=== PATIENT | male | born 1985 | race Hispanic/Latino ===

== ENCOUNTER 2019-06-11 12:38 | Day surgery (SDC) | payer OTHER ==
--- OUTSIDE RECORDS SUMMARY | 2019-06-11 12:53 | XMS REPORT | Continuity of Care Document ---
:1985 Author Organization [facility] Address [address] [place] [address] Phone Unavailable Care Team Providers Name Role Phone Ricky PORTILLO DO Primary Care Physician Insurance Providers Guarantor Delores Gu Address [address] [place] [address] Email [email or web address] Payer [employer] Policy Number [id number] Subscriber's Name Delores Gu Relationship Self / Same As Patient Group Number [id number] Group Name SYLVESTER/JAYLEEN Advance Directives Directive Response Recorded Date/Time Advance Directive on File No 06/09/19 1:04am Chief Complaint and Reason for Visit Chief Complaint Abdominal/GI/Nausea/Vomiting Reason for Visit [id number] Small bowel obstruction [id number] Problems Medical Problem Onset Date Status Constipation by delayed colonic transit Unknown Acute Postoperative anemia Unknown Acute Small bowel obstruction Unknown Acute Past Problems Medical Problem Onset Date Status Abdominal pain Unknown Acute Muscle strain Unknown Acute Medications Current Home Medications Medication Dose Units Route Directions Days Qty Instructions Start Date Acetamin/Codeine 1 Tab ORAL Every 6 Hours 5 Days 15 Tablet Do not combine 300/30 Mg * As Needed as with other 9 (Tylenol With needed for products that Codeine #3 300/30 Pain contain Mg *) 300/30 Mg Tylenol Tab (acetaminophen ). Cyclobenzaprine 1 Tab ORAL Every 6 Hours 5 Days 15 Tablet Hcl (Flexeril *) As Needed as 9 10 Mg Tab needed for Muscle Spasms Ibuprofen (Motrin 1 Tab ORAL Every 6 Hours 5 Days 20 Tablet *) 600 Mg Tab As Needed as 9 needed for Pain Social History Smoking Status Start Date Stop Date Never smoker Hospital Discharge Instructions No hospital discharge instruction information available. Plan of Care Discharge Date 06/09/19 7:35am Instructions/Education Provided Anemia Constipation, Adult Small Bowel Series, Bzfx-rz-Iiqu Forms Provided Portal Welcome Letter Prescriptions See Medication Section Referrals Ricky PORTILLO DO Address: [address] [place], [place] [address] Additional Instructions/Education Ferrous sulfate Drink plenty of fluids Take Dulcolax twice a day until bowels star moving Avoid pain medication Follow up with Doctor Chele tomorrow Return to ER if getting worse Functional Status No functional status information available. Allergies, Adverse Reactions, Alerts Allergen Type Severity Reaction Status Last Updated No Known Allergies Active 05/12/04 Immunizations No immunization information available. Vital Signs Acute Vital Signs Vital Response Date/Time Blood Pressure 156/92 mm Hg 06/09/2019 8:01am Pulse Pulse Rate (adult) 102 beats per minute (60 - 100) 06/09/2019 8:01am Respiratory Rate 16 breaths per minute (10 - 24) 06/09/2019 8:01am Temperature Source Oral 06/09/2019 8:01am Height 5 ft 10 in 06/09/2019 1:04am Weight 240 lb 06/09/2019 1:04am Body Mass Index 34.4 kg/m^2 06/09/2019 1:04am Results Laboratory Results Test Name Result Units Flags Reference Collection Result Comments Date/Time Date/Time White Blood Count 11.8 K/ul 4.0-12.3 06/09/2019 06/09/2019 1:25am 1:50am Red Blood Count 2.46 M/ul L 3.80-5.80 06/09/2019 06/09/2019 1:25am 1:50am Hemoglobin 7.0 g/dL L* 11.7-17.2 06/09/2019 06/09/2019 Results have been broadcasted to patient's location and 1:25am 1:50am called to ([facility] By BISHOP DANG 06/09/19 @0147 Results read back for confirmation. Hematocrit 20.8 % #L* 35.0-51.0 06/09/2019 06/09/2019 Results have been broadcasted to patient's location and 1:25am 1:50am called to ([facility] By BISHOP DANG 06/09/19 @0147 Results read back for confirmation. Mean Corpuscular 84.6 fl 83-100 06/09/2019 06/09/2019 Volume 1:25am 1:50am Mean Corpuscular 28.5 pg 26.8-33.4 06/09/2019 06/09/2019 Hemoglobin 1:25am 1:50am Mean Corpuscular 33.7 g/dL 30-35 06/09/2019 06/09/2019 Hemoglobin Concent 1:25am 1:50am Red Cell 12.7 % 12.0-14.0 06/09/2019 06/09/2019 Distribution Width 1:25am 1:50am Platelet Count 316 K/uL 175-450 06/09/2019 06/09/2019 1:25am 1:50am Mean Platelet 10.5 fL 9.4-12.6 06/09/2019 06/09/2019 Volume 1:25am 1:50am Neutrophils (%) 64.6 % 44.7-82.4 06/09/2019 06/09/2019 (Auto) 1:25am 1:50am Immature 0.6 % H 0.0-0.4 06/09/2019 06/09/2019 Granulocyte % 1:25am 1:50am (Auto) Lymphocytes (%) 19.2 % 10.0-50.0 06/09/2019 06/09/2019 (Auto) 1:25am 1:50am Monocytes (%) 14.3 % H 3.9-13.4 06/09/2019 06/09/2019 (Auto) 1:25am 1:50am Eosinophils (%) 0.9 % 0.0-6.4 06/09/2019 06/09/2019 (Auto) 1:25am 1:50am Basophils (%) 0.4 % 0.2-1.2 06/09/2019 06/09/2019 (Auto) 1:25am 1:50am Neutrophils # 7.63 K/uL H 1.78-5.38 06/09/2019 06/09/2019 (Auto) 1:25am 1:50am Absolute Immature 0.1 K/uL H 0.0-0.03 06/09/2019 06/09/2019 Granulocyte (auto 1:25am 1:50am Lymphocytes # 2.3 K/uL 1.32-3.57 06/09/2019 06/09/2019 (Auto) 1:25am 1:50am Monocytes # (Auto) 1.69 K/uL H 0.30-0.82 06/09/2019 06/09/2019 1:25am 1:50am Eosinophils # 0.11 K/uL 0.04-0.54 06/09/2019 06/09/2019 (Auto) 1:25am 1:50am Basophils # (Auto) 0.05 K/uL 0.01-0.08 06/09/2019 06/09/2019 1:25am 1:50am Nucleated Red 0 /100 0-0.2 06/09/2019 06/09/2019 Blood Cells % WBC 1:25am 1:50am Nucleated Red 0 K/uL 0 06/09/2019 06/09/2019 Blood Cells # 1:25am 1:50am Urine Color YELLOW 06/09/2019 06/09/2019 5:39am 5:52am Urine Appearance CLEAR CLEAR 06/09/2019 06/09/2019 5:39am 5:52am Urine Glucose (UA) NEGATIVE NEGATIVE 06/09/2019 06/09/2019 5:39am 5:52am Urine Bilirubin NEGATIVE NEGATIVE 06/09/2019 06/09/2019 5:39am 5:52am Urine Ketones TRACE NEGATIVE 06/09/2019 06/09/2019 5:39am 5:52am Urine Specific 1.047 H 1.003-1.030 06/09/2019 06/09/2019 [place] 5:39am 5:52am Urine Blood NEGATIVE NEGATIVE 06/09/2019 06/09/2019 5:39am 5:52am Urine pH 6.000 5-9 06/09/2019 06/09/2019 5:39am 5:52am Urine Protein TRACE NEGATIVE 06/09/2019 06/09/2019 5:39am 5:52am Urine Urobilinogen NORMAL mg/dL 0.2-1.0 06/09/2019 06/09/2019 5:39am 5:52am Urine Nitrate NEGATIVE NEGATIVE 06/09/2019 06/09/2019 5:39am 5:52am Urine Leukocyte NEGATIVE NEGATIVE 06/09/2019 06/09/2019 [place] 5:39am 5:52am Urine RBC <1 /hpf 0-5 06/09/2019 06/09/2019 5:39am 5:55am Urine WBC 1-5 /hpf 0-5 06/09/2019 06/09/2019 5:39am 5:55am Urine Epithelial <1 /hpf 0-5 06/09/2019 06/09/2019 Cells 5:39am 5:55am Urine Bacteria None /hpf None Detect 06/09/2019 06/09/2019 Detected 5:39am 5:55am Urine Casts None /lpf None Detect 06/09/2019 06/09/2019 Detected 5:39am 5:55am Urine Culture NO 06/09/2019 06/09/2019 Reflexed 5:39am 5:55am Random Glucose 137 mg/dL H 74-106 06/09/2019 06/09/2019 1:25am 2:16am Blood Urea 10 mg/dL 6-06/09/2019 06/09/2019 Nitrogen 1:25am 2:16am Serum Osmolality 266 L 280-300 06/09/2019 06/09/2019 1:25am 2:16am Creatinine 0.8 mg/dL 0.70-1.20 06/09/2019 06/09/2019 1:25am 2:16am Glomerular > 60.00 06/09/2019 06/09/2019 GFR RESULTS ARE REPORTED IN mL/min/1.73m2. Filtration Rate 1:25am 2:16am Calc Normal GFR: >60mL/min Moderately decreased GFR: 30-59 mL/min Severely decreased GFR: 15-29 mL/min Kidney Failure (or Dialysis): <15 mL/min The calculated eGFR is not valid for patients younger than 18 years or older than 75 years. BUN/Creatinine 12.5 12-20 06/09/2019 06/09/2019 Ratio 1:25am 2:16am Sodium Level 132 mmol/L L 135-145 06/09/2019 06/09/2019 1:25am 2:16am Potassium Level 3.8 mmol/L 3.5-5.2 06/09/2019 06/09/2019 1:25am 2:16am Chloride Level 93 mmol/L L 98-108 06/09/2019 06/09/2019 1:25am 2:16am Carbon Dioxide 27 mmol/L 21-32 06/09/2019 06/09/2019 Level 1:25am 2:16am Anion Gap 15.8 mEq/L 12-20 06/09/2019 06/09/2019 1:25am 2:16am Calcium Level 8.7 mg/dL 8.6-10.0 06/09/2019 06/09/2019 1:25am 2:16am Total Protein 6.6 g/dL 6.6-8.7 06/09/2019 06/09/2019 1:25am 2:16am Albumin 3.6 g/dL 3.5-5.2 06/09/2019 06/09/2019 1:25am 2:16am Globulin 3.0 gm/dL 06/09/2019 06/09/2019 1:25am 2:16am Albumin/Globulin 1.2 >1.0 06/09/2019 06/09/2019 Ratio 1:25am 2:16am Total Bilirubin 0.7 mg/dL 0.0-1.2 06/09/2019 06/09/2019 1:25am 2:16am Aspartate Amino 15 U/L 15-40 06/09/2019 06/09/2019 Transf (AST/SGOT) 1:25am 2:16am Alanine 9 U/L 0-41 06/09/2019 06/09/2019 Aminotransferase 1:25am 2:16am (ALT/SGPT) Lipase 14 U/L 13-60 06/09/2019 06/09/2019 1:25am 2:16am Total Alkaline 73 U/L 40-130 06/09/2019 06/09/2019 Phosphatase 1:25am 2:16am Procedures Procedure Status Date Provider(s) X-ray of abdomen, single view Completed 06/09/19 JONATHAN DONG MD Computed tomography of abdomen and pelvis with Completed 06/09/19 JONATHAN DONG MD contrast Encounters Encounter Location Arrival/Admit Date Discharge/Depart Date Attending Provider Registered [place] 06/09/19 1:01am [facility] Castillo [facility] Recent Diagnosis
--- OUTSIDE RECORDS SUMMARY | 2019-06-11 12:53 | XMS REPORT | Continuity of Care Document ---
:1985 Author Organization [facility] Address [address] [place] [address] Phone Unavailable Care Team Providers Name Role Phone Ricky PORTILLO DO Primary Care Physician Insurance Providers Guarantor Delores Gu Address [address] [place] [address] Email [email or web address] Payer [employer] Policy Number [id number] Subscriber's Name Delores Gu Relationship Self / Same As Patient Group Number [id number] Group Name SYLVESTER/JAYLEEN Advance Directives Directive Response Recorded Date/Time Patient/Family Given Education Material R/T Y - 03/24/19...[place] 03/24/19 2: 51pm Directives? Chief Complaint and Reason for Visit Chief Complaint Abdominal/GI/Nausea/Vomiting Reason for Visit Muscle strain Abdominal pain Problems Active ProblemsNo active problem information available. Past Problems Medical Problem Onset Date Status [...] information available. Plan of Care Discharge Date 03/24/19 4:50pm Instructions/Education Provided Muscle Strain, Nyxk-ff-Frxz Abdominal Pain, Adult, Dngn-tf-Vsmq Forms Provided Portal Welcome Letter Prescriptions See Medication Section Referrals Ricky PORTILLO DO Address: [address] [place] [id number] Additional Instructions/Education Recommend that you take the Flexeril 10 mg 3 times daily as needed for muscle spasm, also take the Tylenol #3 as needed for pain, and take the Motrin 600 mg as needed for inflammatory pain. Follow up with your primary doctor in 2 days for re check of your condition, or otherwise return to the ED if your condition worsens. Functional Status No functional status information available. Allergies, Adverse Reactions, Alerts Allergen Type Severity Reaction Status Last Updated No Known Allergies Active 05/12/04 Immunizations No immunization information available. Vital Signs Acute Vital Signs Vital Response Date/Time Blood Pressure 116/65 mm Hg 03/24/2019 4:58pm Pulse Pulse Rate (adult) 53 beats per minute (60 - 100) 03/24/2019 4:58pm Respiratory Rate 14 breaths per minute (10 - 24) 03/24/2019 4:58pm Temperature Source Oral 03/24/2019 4:58pm Height 5 ft 10 in 03/24/2019 2:20pm Weight 235 lb 03/24/2019 2:20pm Body Mass Index 33.7 kg/m^2 03/24/2019 2:20pm Results Laboratory Results Test Name Result Units Flags Reference Collection Result Comments Date/Time Date/Time White Blood Count 10.0 K/ul 4.0-12.3 03/24/2019 03/24/2019 2:22pm 2:38pm Red Blood Count 5.45 M/ul 3.80-5.80 03/24/2019 03/24/2019 2:22pm 2:38pm Hemoglobin 15.1 g/dl 11.7-17.2 03/24/2019 03/24/2019 2:22pm 2:38pm Hematocrit 46.9 % 35.0-51.0 03/24/2019 03/24/2019 2:22pm 2:38pm Mean Corpuscular 86.0 fl 78-96 03/24/2019 03/24/2019 Volume 2:22pm 2:38pm Mean Corpuscular 27.6 pg 26.8-33.4 03/24/2019 03/24/2019 Hemoglobin 2:22pm 2:38pm Mean Corpuscular 32.2 g/dl L 32.3-36.7 03/24/2019 03/24/2019 Hemoglobin 2:22pm 2:38pm Concent Red Cell 12.0 % 11.6-15.4 03/24/2019 03/24/2019 Distribution 2:22pm 2:38pm Width Platelet Count 272 K/ul 115-328 03/24/2019 03/24/2019 2:22pm 2:38pm Mean Platelet 8.3 fl L 8.4-11.8 03/24/2019 03/24/2019 Volume 2:22pm 2:38pm Neutrophils (%) 66.8 % 44.7-82.4 03/24/2019 03/24/2019 (Auto) 2:22pm 2:38pm Lymphocytes (%) 24.6 % 10.0-50.0 03/24/2019 03/24/2019 (Auto) 2:22pm 2:38pm Monocytes (%) 6.7 % 3.9-13.4 03/24/2019 03/24/2019 (Auto) 2:22pm 2:38pm Eosinophils (%) 0.8 % 0.0-6.4 03/24/2019 03/24/2019 (Auto) 2:22pm 2:38pm Basophils (%) 1.1 % H 0.0-0.72 03/24/2019 03/24/2019 (Auto) 2:22pm 2:38pm Urine Color YELLOW 03/24/2019 03/24/2019 2:22pm 2:39pm Urine Appearance CLEAR CLEAR 03/24/2019 03/24/2019 2:22pm 2:39pm Urine Glucose NEGATIVE NEGATIVE 03/24/2019 03/24/2019 2:22pm 2:39pm Urine Bilirubin NEGATIVE NEGATIVE 03/24/2019 03/24/2019 2:22pm 2:39pm Urine Ketones NEGATIVE NEGATIVE 03/24/2019 03/24/2019 2:22pm 2:39pm Urine Specific 1.030 1.003-1.03 03/24/2019 03/24/2019 [place] 0 2:22pm 2:39pm Urine Blood NEGATIVE NEGATIVE 03/24/2019 03/24/2019 2:22pm 2:39pm Urine pH 6.500 5-9 03/24/2019 03/24/2019 2:22pm 2:39pm Urine Protein NEGATIVE NEGATIVE 03/24/2019 03/24/2019 2:22pm 2:39pm Urine 2.0-3.0 mg/dL H 0.2-1.0 03/24/2019 03/24/2019 Urobilinogen 2:22pm 2:39pm Urine Nitrate NEGATIVE NEGATIVE 03/24/2019 03/24/2019 2:22pm 2:39pm Urine Leukocyte NEGATIVE NEGATIVE 03/24/2019 03/24/2019 Esterase 2:22pm 2:39pm Urine RBC <1 /hpf 0-5 03/24/2019 03/24/2019 2:22pm 2:41pm Urine WBC <1 /hpf 0-5 03/24/2019 03/24/2019 2:22pm 2:41pm Urine Epithelial <1 /hpf 0-5 03/24/2019 03/24/2019 Cells 2:22pm 2:41pm Urine Bacteria None /hpf None 03/24/2019 03/24/2019 Detected Detect 2:22pm 2:41pm Urine Casts None /lpf None 03/24/2019 03/24/2019 Detected Detect 2:22pm 2:41pm Urine Culture NO 03/24/2019 03/24/2019 Reflexed 2:22pm 2:41pm Random Glucose 99 mg/dL 74-106 03/24/2019 03/24/2019 2:22pm 2:52pm Blood Urea 15 mg/dL 6-20 03/24/2019 03/24/2019 Nitrogen 2:22pm 2:52pm Serum Osmolality 278 L 280-300 03/24/2019 03/24/2019 2:22pm 2:52pm Creatinine 0.9 mg/dL 0.70-1.20 03/24/2019 03/24/2019 2:22pm 2:52pm Glomerular > 60.00 03/24/2019 03/24/2019 GFR RESULTS ARE REPORTED IN mL/min/1.73m2. Filtration Rate 2:22pm 2:52pm Calc Normal GFR: >60mL/min Moderately decreased GFR: 30-59 mL/min Severely decreased GFR: 15-29 mL/min Kidney Failure (or Dialysis): <15 mL/min The calculated eGFR is not valid for patients younger than 18 years or older than 75 years. BUN/Creatinine 16.7 12-03/24/2019 03/24/2019 Ratio 2:22pm 2:52pm Sodium Level 139 mmol/L 135-145 03/24/2019 03/24/2019 2:22pm 2:52pm Potassium Level 4.2 mmol/L 3.5-5.2 03/24/2019 03/24/2019 2:22pm 2:52pm Chloride Level 101 mmol/L 98-108 03/24/2019 03/24/2019 2:22pm 2:52pm Carbon Dioxide 27 mmol/L 21-32 03/24/2019 03/24/2019 Level 2:22pm 2:52pm Anion Gap 15.2 mEq/L 09-2003/24/2019 03/24/2019 2:22pm 2:52pm Calcium Level 9.2 mg/dL 8.6-10.0 03/24/2019 03/24/2019 2:22pm 2:52pm Total Protein 7.2 g/dL 6.6-8.7 03/24/2019 03/24/2019 2:22pm 2:52pm Albumin 4.4 g/dL 3.5-5.2 03/24/2019 03/24/2019 2:22pm 2:52pm Globulin 2.8 gm/dL 03/24/2019 03/24/2019 2:22pm 2:52pm Albumin/Globulin 1.6 >1.0 03/24/2019 03/24/2019 Ratio 2:22pm 2:52pm Total Bilirubin 0.4 mg/dL 0.0-1.2 03/24/2019 03/24/2019 2:22pm 2:52pm Aspartate Amino 20 U/L 15-40 03/24/2019 03/24/2019 Transf (AST/SGOT) 2:22pm 2:52pm Alanine 15 U/L 0-41 03/24/2019 03/24/2019 Aminotransferase 2:22pm 2:52pm (ALT/SGPT) Amylase Level 56 U/L 28-100 03/24/2019 03/24/2019 2:22pm 2:52pm Lipase 41 U/L 13-60 03/24/2019 03/24/2019 2:22pm 2:52pm Total Alkaline 78 U/L 40-130 03/24/2019 03/24/2019 Phosphatase 2:22pm 2:52pm Urine NEGATIVE NG/ML NEGATIVE 03/24/2019 03/24/2019 Amphetamines 2:22pm 2:54pm Screen Urine NEGATIVE NG/ML NEGATIVE 03/24/2019 03/24/2019 Barbiturates, 2:22pm 2:54pm Quantitative Urine NEGATIVE NG/ML NEGATIVE 03/24/2019 03/24/2019 Benzodiazepines 2:22pm 2:54pm Screen Urine NEGATIVE NG/ML NEGATIVE 03/24/2019 03/24/2019 Cannabinoids 2:22pm 2:54pm Urine Cocaine NEGATIVE NG/ML NEGATIVE 03/24/2019 03/24/2019 Metabolite 2:22pm 2:54pm Urine Opiates NEGATIVE NG/ML NEGATIVE 03/24/2019 03/24/2019 Screen 2:22pm 2:54pm Urine NEGATIVE NG/ML NEGATIVE 03/24/2019 03/24/2019 Phencyclidine 2:22pm 2:54pm (PCP) Level Methadone Level NEGATIVE NG/ML NEGATIVE 03/24/2019 03/24/2019 2:22pm 2:54pm Propoxyphene NEGATIVE NG/ML NEGATIVE 03/24/2019 03/24/2019 Level 2:22pm 2:54pm Oxycodone Level NEGATIVE NG/ML NEGATIVE 03/24/2019 03/24/2019 2:22pm 2:54pm Urine Drug Screen . 03/24/2019 03/24/2019 DRUGS OF ABUSE CUT-OFF VALUES Note 2:22pm 2:36pm AMPHETAMINES (AMPH) NEGATIVE (CUT OFF CONC: 1000 NG/ML) BARBITUATES (QUIQUE) NEGATIVE (CUT OFF CONC: 200 NG/ML) BENZODIAZEPINES (SONIYA) NEGATIVE (CUT OFF CONC: 300 NG/ML) CANNABINOIDS (THC) NEGATIVE (CUT OFF CONC: 50 NG/ML) COCAINE (AVA) NEGATIVE (CUT OFF CONC: 300 NG/ML) OPIATES (OPI) NEGATIVE (CUT OFF CONC: 300 NG/ML) PHENCYCLIDINE (PCP) NEGATIVE (CUT OFF CONC: 25 NG/ML)METHADONE (MTD) NEGATIVE (CUT OFF CONC: 300 NG/ML) PROPOXYPHENE (PPX) NEGATIVE (CUT OFF CONC: 300 NG/ML) OXYCODONE (OXY) NEGATIVE (CUT OFF CONC: 100 NG/ML) ANY POSITIVE RESULT IS UNCONFIRMED. CONFIRMATION AND QUANTITATION AVAILABLE UPON MD REQUEST. Procedures Procedure Status Date Provider(s) Computed tomography of abdomen and pelvis with Completed 03/24/19 SADIE FLYNN MD contrast Encounters Encounter Location Arrival/Admit Date Discharge/Depart Date Attending Provider Departed [place] 03/24/19 2:15pm 03/24/19 4:50pm SADIE FLYNN [facility] Recent Diagnosis
[2019-06-11] MEDS ORDERED: ROCURONIUM 50 MG/5 ML VIAL IV ONE (12:55)
[2019-06-11] MEDS ORDERED: LIDOCAINE 2% MPF 5 ML VIAL ONE (12:55)
[2019-06-11] MEDS ORDERED: FENTANYL CITR 100 MCG/2 ML ONE ×3 (12:55→15:54)
[2019-06-11] MEDS ORDERED: PROPOFOL 200 MG/20 ML VIAL IV ONE (12:55)
[2019-06-11] MEDS ORDERED: Ringers Lactate 1,000 ML IV ONE (12:55)
[2019-06-11] MEDS ORDERED: MIDAZOLAM HCL 2 MG/2 ML INJ ONE (12:55)
[2019-06-11] MEDS ORDERED: PROMETHAZINE 25 MG/ML VIAL ONE (13:05)
[2019-06-11] MEDS ORDERED: HYDROMORPHONE HCL 1 MG/ML INJ ONE (13:07)
[2019-06-11] MEDS ORDERED: NA CHLORIDE 0.9% 1,000 ML ONE ×2 (13:12→14:07)
--- NOTE | 2019-06-11 13:23 | P.HP ---
Certification for Inpatient With expected LOS: <2 Midnights Patient will require the following post-hospital care: None Practitioner: I am a practitioner with admitting privileges, knowledge of patient current condition, hospital course, and medical plan of care. Services: Services provided to patient in accordance with Admission requirements found in Title 42 Section 412.3 of the Code of Federal Regulations Patient History Date of Service: 06/11/19 Reason for admission: abdominal incision hematoma History of Present Illness: S/P abdominal surgery 6 days ,presents with increased pain and swelling at abdominal incision site. Home medications list reviewed: No - Past Medical/Surgical History Has patient received pneumonia vaccine in the past: No Diabetic: No Past Medical History: Reviewed- Non-Contributory -: gastic sleeve , abdomioplasty,gynecomastia surgery - Social History Smoking Status: Never smoker Alcohol use: No CD- Drugs: No Caffeine use: Yes Place of Residence: Home Assessment and Plan - Advance Directives Does patient have a Living Will: No Does patient have a Durable POA for Healthcare: No
[2019-06-11 13:28] LABS: Absolute Lymphocytes (CBC) 1.3 K/uL (0.7-4.9); Basophils % 0.2 % (0-1.3); Hematocrit 20.4 % (39.6-49.0); Lymphocytes % 11.1 % (15.3-44.8); MPV 7.3 fL (7.6-11.3); RBC Red Blood Cell Count 2.44 M/uL (4.33-5.43)
[2019-06-11 13:38] LABS: Protime INR 1.23
[2019-06-11] MEDS ORDERED: CEFAZOLIN/SWI 2gm 2 GM/20 ML SYR ONE (13:40)
[2019-06-11] MEDS ORDERED: ONDANSETRON 4 MG/2 ML VIAL ONE (15:10)
[2019-06-11] MEDS ORDERED: GLYCOPYRROLATE 0.2 MG/ML SYR ONE (15:46)
[2019-06-11] MEDS ORDERED: NEOSTIGMINE 1 MG/ML -10 ML VIAL ONE (15:46)
[2019-06-11] MEDS ORDERED: LABETALOL HCL 100 MG/20 ML ONE (16:22)
[2019-06-11] MEDS: MORPHINE 4 MG/ML SYR ONE ×2 (16:30→16:39)
[2019-06-11 16:36] LABS: Hematocrit 21.8 % (39.6-49.0)
[2019-06-11] MEDS ORDERED: TRAMADOL HCL 50 MG TAB PO PRN (16:59)
[2019-06-11 17:33] VITALS: BMI 35.4
[2019-06-11] MEDS: TRAMADOL HCL 50 MG TAB PO PRN (19:12)
[2019-06-11] MEDS: CYCLOBENZAPRINE 10 MG TAB PO PRN (21:02)
[2019-06-11] MEDS: ACETAMINOPHEN 500 MG TAB PO PRN (21:02)
[2019-06-11] MEDS: CEFAZOLIN/SWI 2gm 2 GM/20 ML SYR IVP SCH (21:03)
[2019-06-12] MEDS: TRAMADOL HCL 50 MG TAB PO PRN ×2 (00:32→09:25)
--- NOTE | 2019-06-12 02:58 | OP ---
Date of Procedure: 06/11/2019 Surgeon: Kunal Avendano MD Smoke Tester: DAVID Lorenz Preoperative Diagnosis: Hematoma, abdominal incision. Postoperative Diagnosis: Hematoma, abdominal incision. Operation Performed: Incision and drainage of hematoma, abdominal incision.( CPT 44425) Anesthesia: General endotracheal anesthesia. Counts: All needle, sponge, and instrument counts were correct at the end of the case. Specimens: No specimens sent. Indications: Patient is a 33-year-old male, who had previous abdominal surgery approximately a week ago and developed increased pain and swelling at the site, clinically appeared to have hematoma, now here for incision and drainage of abdominal incision hematoma. Blood loss acute was minimal. About 200 cc of clot was removed. Description Of Procedure: Patient was seen in the preoperative holding area. The operative plan reviewed. Patient was also scheduled and transfuse 2 units of blood. He was brought to the operating suite, placed in a comfortable supine position on the bed with the head slightly elevated. After induction of general anesthesia, he was also given Ancef 2 g IV piggyback prior to skin incision within 1 hour and BOBBY hose and sequential compression devices were placed on lower extremities and activated prior to skin incision and induction of general anesthesia. After induction of general anesthesia, the abdomen was prepped and draped in sterile fashion with Betadine. A portion of the lateral incision on the right and left side was opened up through the skin, subcutaneous tissues, Jimy's fascia down the abdominal wall. A thin layer of stable dark clot was present over the abdominal wall from the incision up to approximately the level of the umbilicus. This was removed and irrigated copiously with saline. Saline soaked lap pads were placed in the wound and allowed to sit for approximately 10 minutes and then removed. No active bleeding was noted. The wound was then closed over two 10 mm Almas-Delcid drains, each one brought out through the end of each side of the incision and sutured in place with 3-0 nylon. The incision was then closed with a Jimy's fascia layer of running 0 PDS suture and then isaura were used to approximate the skin edges. The wound was then dressed with Xeroform, ABD pads, and Hypafix tape. The drains were placed to close bulb suction. The patient was awakened, extubated and taken to recovery in stable condition. He will be observed overnight and follow his blood counts. GP/MODL Voice ID: [id number] Report ID: [id number] LESLIE
[2019-06-12] MEDS: CEFAZOLIN/SWI 2gm 2 GM/20 ML SYR IVP SCH (05:21)
[2019-06-12 06:07] LABS: Hematocrit 24.2 % (39.6-49.0)
[2019-06-12] MEDS: ACETAMINOPHEN 500 MG TAB PO PRN (06:43)
[2019-06-12 08:26] VITALS: BP 168/92; TEMP 97.9
--- NOTE | 2019-06-12 08:44 | P.PN ---
Subjective Date of Service: 06/12/19 Chief Complaint: abdominal incision hematoma Subjective: Tolerating diet, Ambulating, Doing well Pt. post op day # 1 doing well, VSS,dressing intact and dry. Tolerating regular diet. Appropriate elevation of H/H with transfusion. Plan D/C home. Physical Examination - Vital Signs Temperature: 97.9 F Blood Pressure: 168/92 Pulse: 97 Respirations: 20 Pulse Ox (%): 92 - Studies Laboratory Data (last 24 hrs) 06/12/19 05:36: Hgb 8.4 L, Hct 24.2 L 06/11/19 16:20: Hgb 7.6 L*, Hct 21.8 L 06/11/19 13:11: Sodium 133 L, Potassium 4.0, BUN 27 H, Creatinine 1.02, Glucose 107 H 06/11/19 13:11: PT 14.4 H, INR 1.23, APTT 27.0 06/11/19 13:11: WBC 11.4 H, Hgb 7.4 L*, Hct 20.4 L*, Plt Count 570 H
[2019-06-12] MEDS ORDERED: VITAMIN K (ADULT) 10 MG/ML SQ SCH (09:00)
[2019-06-12] MEDS: CYCLOBENZAPRINE 10 MG TAB PO PRN (09:25)
--- NOTE | 2019-06-12 10:16 | P.CNS ---
Date of Consult: 06/11/19 Reason for Consult: medical management Requesting Physician: Kunal Avendano Chief Complaint: abdominal incision hematoma History of Present Illness: patient is a 33-year-old gentleman who came to the hospital and had a tummy tuck. Afterwards he developed a hematoma and was admitted to the hospital for observation. We were asked to provide medical consultation. Patient denies any significant medical problems. He is having some pain and discomfort in that region of the hematoma. Will admit him to the hospital and assist with medical management. Monitor his H&H closely. Pain control as well. We will provide further care per Plastic surgery. Allergies [place] Allergy (Verified 06/11/19 17:42) Anaphylaxis Home Medications: NK [No Home Meds] 06/11/19 - Past Medical/Surgical History Diabetic: No Past Medical History: Patient denies medical history -: gastic sleeve , abdomioplasty,gynecomastia surgery - Family History Father Family History: Reviewed- Non-Contributory - Social History Smoking Status: Never smoker Alcohol use: Yes CD- Drugs: No Caffeine use: Yes Place of Residence: Home Review of Systems 10-point ROS is otherwise unremarkable Physical Examination Temp Pulse Resp BP Pulse Ox 97.9 F 97 H 20 168/92 H 92 06/12/19 08:43 06/12/19 08:43 06/12/19 08:43 06/12/19 08:43 06/12/19 08:43 General: Alert, In no apparent distress, Oriented x3 HEENT: Atraumatic, PERRLA, Mucous membr. moist/pink, EOMI, Sclerae nonicteric Neck: Supple, 2+ carotid pulse no bruit, No LAD, Without JVD or thyroid abnormality Respiratory: Clear to auscultation bilaterally, Normal air movement Cardiovascular: Regular rate/rhythm, Normal S1 S2, No murmurs Gastrointestinal: Normal bowel sounds, Soft and benign, Non-distended, Tenderness Musculoskeletal: No clubbing, No swelling, No tenderness Integumentary: No rashes Neurological: Normal gait, Normal speech, Normal strength at 5/5 x4 extr, Normal tone, Sensation intact, Cranial nerves 3-12 intact, Normal affect Lymphatics: No axilla or inguinal lymphadenopathy Laboratory Data (last 24 hrs) 06/12/19 05:36: Hgb 8.4 L, Hct 24.2 L 06/11/19 16:20: Hgb 7.6 L*, Hct 21.8 L 06/11/19 13:11: Sodium 133 L, Potassium 4.0, BUN 27 H, Creatinine 1.02, Glucose 107 H 06/11/19 13:11: PT 14.4 H, INR 1.23, APTT 27.0 06/11/19 13:11: WBC 11.4 H, Hgb 7.4 L*, Hct 20.4 L*, Plt Count 570 H - Problems (1) Postprocedural hematoma of abdominal wall Current Visit: Yes Status: Acute Conclusions/ Impression: 1. Continue with IV hydration 2. Continue with IV antibiotics 3. Continue with pain control 4. NPO 5. Plastic surgery managing surgical issues 6. Monitor serial H&H. 7. GI and DVT prophylaxis Critical Care: No Time Spent Managing Pts care (In Minutes): 45
[2019-06-12 10:34] VITALS: O2SAT 92
== END 2019-06-12 11:04 | disposition home or self-care (01) ==
LOC: OR 12:38 → 2ND 14:39 → OR 06-12 11:04
PROVIDERS: ATTEND Surgery Plastic and Reconstructive Surgery
PROC: 30233N1 Transfusion of Nonautologous Red Blood Cells into Peripheral Vein, Percutaneous Approach (ICD-10-PCS; 2019-06-11)
PROC: 0W9F0ZX Drainage of Abdominal Wall, Open Approach, Diagnostic (ICD-10-PCS; principal; 2019-06-11 13:00)
DX: L76.32 Postprocedural hematoma of skin and subcutaneous tissue following other procedure (principal); Y83.8 Other surgical procedures as the cause of abnormal reaction of the patient, or of later complication, without mention of misadventure at the time of the procedure; D64.9 Anemia, unspecified; Z91.018 Allergy to other foods; Z80.9 Family history of malignant neoplasm, unspecified; Z83.3 Family history of diabetes mellitus
CPT/HCPCS: 36415; 80048; 85014; 85018; 85025; 85610; 85730; 86850; 86900; 86901; J0690; J1170; J2250; J2405; J2550; J2704; J2710; J3010; J3430; J7030; P9016